=== PATIENT | male | born 1970 | race Caucasian/White ===

== ENCOUNTER 2016-07-25 08:00 | Day surgery (SDC) | payer OTHER ==
[~2016-07-25 08:00] MED LIST: FENTANYL 250 MCG/5 ML AMP IV PRN; IV START KIT ONE; LACTATED RINGERS 1,000 ML IV SCH; LIDOCAINE Viscous 2% 15 ML UDCUP PO PRN; MIDAZOLAM HCL 5 MG/5 ML VIAL IV PRN
[2016-07-25] MEDS ORDERED: MIDAZOLAM HCL 1 MG/ML 2ML VIAL ONE (08:51)
== END 2016-07-25 09:52 | disposition home or self-care (01) ==
LOC: SDC 08:00
PROVIDERS: ATTEND Internal Medicine Gastroenterology
PROC: 0DJD8ZZ Inspection of Lower Intestinal Tract, Via Natural or Artificial Opening Endoscopic (ICD-10-PCS; principal; 2016-07-25)
DX: K64.1 Second degree hemorrhoids (principal); R19.4 Change in bowel habit; Z72.0 Tobacco use
CPT/HCPCS: 45378; J3010; J2250 ×2; A9270; J7120